=== PATIENT | female | born 1955 | race Caucasian/White ===

== ENCOUNTER 2024-04-30 06:12 | Observation (INO) ==
--- NOTE | 2024-04-11 09:24 | PAT Medication Instructions ---
Medication Instructions Date of Service April 11, 2024 Home Medications albuterol sulfate 90 mcg/actuation aerosol inhaler 1 inh inhalation QID PRN citalopram 40 mg tablet 20 mg PO QPM fluticasone 100 mcg-salmeterol 50 mcg/dose blistr powdr for inhalation (Wixela Inhub) 1 inh inhalation BID fluticasone propionate 0.05 % lotion 1 applic topical DAILY PRN meloxicam 15 mg tablet 15 mg PO UD PRN rosuvastatin 10 mg tablet 10 mg PO QPM tiotropium bromide 1.25 mcg/actuation mist for inhalation (Spiriva Respimat) 2 puff inhalation QPM triamcinolone acetonide 0.1 % topical cream 1 applic topical DAILY PRN ASK your surgeon for instructions meloxicam 15 mg tablet 15 mg PO UD PRN STOP taking 24 hours before surgery fluticasone propionate 0.05 % lotion 1 applic topical DAILY PRN triamcinolone acetonide 0.1 % topical cream 1 applic topical DAILY PRN Take morning of surgery With a small sip of water, OTHERWISE NOTHING TO EAT OR DRINK AFTER MIDNIGHT: albuterol sulfate 90 mcg/actuation aerosol inhaler 1 inh inhalation QID PRN(use if needed; please bring with you to hospital day of surgery if possible) fluticasone 100 mcg-salmeterol 50 mcg/dose blistr powdr for inhalation (Wixela Inhub) 1 inh inhalation BID Take evening before surgery albuterol sulfate 90 mcg/actuation aerosol inhaler 1 inh inhalation QID PRN(if needed) citalopram 40 mg tablet 20 mg PO QPM fluticasone 100 mcg-salmeterol 50 mcg/dose blistr powdr for inhalation (Wixela Inhub) 1 inh inhalation BID rosuvastatin 10 mg tablet 10 mg PO QPM tiotropium bromide 1.25 mcg/actuation mist for inhalation (Spiriva Respimat) 2 puff inhalation QPM Other Notes If you have any questions please call us at [phone] or [phone] or [phone] or [phone]
--- NOTE | 2024-04-18 09:30 | Anesthesiology Consultation ---
Date of Service April 18, 2024 Assessment & Plan (1) Encounter for pre-operative examination: - Infectious disease screening: Per assessment on 04/18/24: No known recent infectious disease contacts or current infectious disease symptoms. - Outpatient joint assessment: Pt currently scheduled for inpatient pathway. If surgeon requests review for outpatient joint pathway, patient is an acceptable candidate for outpatient joint program from anesthesia standpoint pending surgeon's office assessment that patient is motivated, has good support and completes Same Day Joint Program preop requirements. - RUE limb restriction - Preop CXR: Done 04/18/24- notes "Indeterminate suspected 9 mm right lung nodule. Chest CT is recommended for further evaluation." Note written to PCP regarding preop CXR (Freda GLOVER/Cristina). Patient otherwise acceptable risk for surgery. Chart Review Chart Review: Patient seen in Pre Admission Testing Teaching & Discussion Pre-Anesthesia Teaching/Discussion Notes: Instructed NPO after midnight before surgery,except medications with 15 cc of water. Medication instructions provided according to the PAT guidelines. History Surgery Operation Date: 04/30/24 10:40 Proposed Procedures p Left Total Hip Arthroplasty - Slade Hanson MD Height/Weight Height: 5 ft 9 in Weight: 122.5 kg Allergies Allergy/AdvReac Type Severity Reaction Status Date / Time No Known Allergies Allergy Verified 04/09/24 14:33 Medications Home Medications Medication Instructions Recorded Confirmed Last Taken albuterol sulfate 90 mcg/actuation 1 inh inhalation QID PRN Shortness 04/05/24 04/09/24 Unknown aerosol inhaler Of Breath citalopram 40 mg tablet 20 mg PO QPM 04/05/24 04/09/24 Unknown fluticasone 100 mcg-salmeterol 50 1 inh inhalation BID 04/05/24 04/09/24 Unknown mcg/dose blistr powdr for inhalation (Wixela Inhub) fluticasone propionate 0.05 % 1 applic topical DAILY PRN eczema 04/05/24 04/09/24 Unknown lotion meloxicam 15 mg tablet 15 mg PO UD PRN Pain 04/05/24 04/09/24 Unknown rosuvastatin 10 mg tablet 10 mg PO QPM 04/05/24 04/09/24 Unknown tiotropium bromide 1.25 2 puff inhalation QPM 04/05/24 04/09/24 Unknown mcg/actuation mist for inhalation (Spiriva Respimat) triamcinolone acetonide 0.1 % 1 applic topical DAILY PRN eczema 04/05/24 Unknown topical cream Past Medical History Medical History Bilateral hip joint arthritis COPD (chronic obstructive pulmonary disease) Depression Dyslipidemia Hx of breast cancer ~Age 59, Hx XRT x 13 weeks/surgery Hx of cardiac murmur "Very slight, since childhood" No murmur noted at PAT visit 04/18/24 Hx of cervical cancer Dx age 20s Hx surgery/oral treatment Sleep apnea BIPAP (compliant) Exercise / Class Metabolic Activity III < 4 Walking/Shop/Light housework (one FS: No CP, + SOB) Past Surgical History Surgical History History of lumpectomy of right breast + lymph node removal RUE limb restriction History of open reduction and internal fixation (ORIF) procedure Right elbow (hardware removed) History of partial hysterectomy "for partial removal of cervix" Hx laparoscopic cholecystectomy Hx of arthroscopy of left knee Hx of arthroscopy of right knee Hx of tonsillectomy Nausea after anesthesia S/P hardware removal Right elbow Past Anesthesia History No Hx of Anesthesia Complications and No Family Hx of Anesthesia Complications History of PONV History of PONV (post-op nausea) and Hx of Motion Sickness Social History Smoking Status: Current every day smoker Smoking cigarettes per day: 1 pack/few days Do You Dip or Chew Tobacco: No Hx Alcohol Use: No (No ETOH since age 24) Hx Substance Use: No substance use type: does not use Review of Systems Patient denies chest pain, shortness of breath, fever, chills, cough, wheezing. Rare palpitations. Physical Exam Vital Signs BP 145/77 P 72 TEMP 98.0 SP02 96%RA RESP 20 Physical Full cervical extension range of motion. Full TMJ range of motion. TMD 3 finger breaths Mallampati Score 1 Dentition: upper/lower full dentures Lungs: clear throughout to auscultation Cardiac: regular rate and rhythm, no murmurs noted, distant heart sounds Spine: normal Carotid arteries: negative bruit Extremities: no LE edema Lab Results Anesthesia Preop Results Results Anesthesia Widget: WBC 8.61 K/ul (4.8-10.8) 04/18/24 Hgb 15.0 g/dl (12.0-16.0) 04/18/24 Hct 45.3 % (37.0-47.0) 04/18/24 Plt 431 K/uL (130-400) H 04/18/24 Na 138 mmol/L (136-145) 04/18/24 K 3.9 mmol/L (3.5-5.1) 04/18/24 Cl 108 mmol/L (98-107) H 04/18/24 CO2 25 mmol/L (21-32) 04/18/24 BUN 15 mg/dl (6-23) 04/18/24 Creat 0.74 mg/dl (0.6-1.2) 04/18/24 Glucose Level 97 mg/dl (70-99(Fasting)) 04/18/24 PT 10.0 Seconds (9.0-12.0) 04/18/24 PTT 27 Seconds (21-31) 04/18/24 INR 0.9 (0.9-1.1) 04/18/24 Blood Type O Positive 04/18/24 Antibody Screen NEGATIVE 04/18/24 Testing Electrocardiogram Date: 04/18/24 NSR at 67bpm. Rightward axis. Chest X-Ray Date: 04/18/24 FINDINGS: Lung volumes are normal. No pneumothorax or pleural effusion is present. 9 mm round nodular density projects over the right midlung. No consolidation is present. No evidence for pulmonary edema. Cardiomediastinal silhouette is normal. IMPRESSION: No acute cardiopulmonary findings. Indeterminate suspected 9 mm right lung nodule. Chest CT is recommended for further evaluation.
--- OUTSIDE RECORDS SUMMARY | 2024-04-30 06:33 | External Medical Summary | Summary of Care ---
Author Name Unknown Organization [facility] Address [address] [place] [address] Phone [phone] Care Team Providers Care Kiln Firer Name Role Phone Freda Argueta PA-C Primary Care Provider [phone]- [phone] Reason for Referral * Evaluate & Treat - Unlimited Visits (Within 10 days (routine)) - Authorized Specialty Diagnoses / Procedures Referred By Faith weems Referred To Contact Pulmonary Diseases / Pulmonary Diagnoses Pulmonary nodules Freda Argueta PA-C [address] [place] [address] Referral ID Status Reason Start Date Expiration Date Visits Requested Visits Authorized [id number] Authorized Specialty Services Required 04/24/2024 999 999 Question Answer Referral Priority Within 10 Days (Routine) Primary Reason for Referral? Lung Nodule/Mass Reason for Visit * Reason Onset Date Comments Preop Pt Assessment 04/24/202404/24 Encounter Details Date Type Department Care Team (Late st Contact Info) Description 04/24/2024 Telephone [facility][1], [place] [address] [place] [address] [id number] Freda Argueta PA-C [address] [place] [address] [id number] Preop Pt Assessment (04/24) Allergies No known active allergiesdocumented as of this encounter (statuses as of 04/26/2024) Medications Medication Sig Dispensed Refills Start Date End Date Status triamcinolone acetonide (ARISTOCORT) 0.1 % ointmentIndications:P soriasis apply at bedtime to Psoriasis Use the clobetasol only on worst areas 80 g 5 08/01/2016 Active Additional Information Patient taking differently: apply at bedtime to Psoriasis Use the clobetasol only on worst areas, Indications: eczema, Reported on 08/28/2023 Calcium Carbonate (CALCIUM 600) 600 MG Tablet Take 1 Tab by mouth every evening. 10/04/2016 Active Additional Information Patient taking differently:600 mg Oral QPM-1999,Indications: calcium, Reported on 08/28/2023 clobetasol propionate (TEMOVATE) 0.05 % ointmentIndications:P soriasis Apply topically to affected area 2 times a day as needed for Other (psoriasis). 60 g 5 01/23/2019 Active Additional Information Patient taking differently:Topical BID PRN, Other, psoriasis,Indications: eczema, Reported on 08/28/2023 Respiratory Therapy Supplies SUSIE Use as directed. BiPAP 14/10 cm at bedtime daily Active Nebulizer DeviceIndications:Timbo trilobular emphysema (HCC) Use every 4 hours as ordered DX J 44.9 1 Each 03/01/2021 Active Nebulizer/Tubing/Mout hpiece KitIndications:Centri lobular emphysema (HCC) Use every 4 hour as directed Dx J 44.9 1 Kit 11 03/01/2021 Active Montelukast Sodium 10 MG Oral Tablet (Singulair)Indication s:Chronic rhinitis Take by mouth 1 Tablet before bedtime. 30 Tablet 11 04/29/2022 Active Additional Information Patient taking differently:10 mg Oral HS,Indications: allergies, Reported on 10/18/2023 Albuterol Sulfate HFA 108 (90 Base) MCG/ACT Inhalation Aerosol SolutionIndications:W heezing TAKE 2 puffs BY MOUTH EVERY 4 HOURS NEEDED FOR wheezing 18 g 3 10/10/2022 Active Albuterol Sulfate 1.25 MG/3ML Inhalation Nebulization SolutionIndications:C entrilobular emphysema (HCC) Inhale 1.25 mg via nebulizer every 4 hours as needed for Wheezing. 120 mL 3 02/27/2023 Active Acetaminophen 500 MG Oral Tablet (Tylenol) Take 2 Tablets by mouth every 8 hours as needed for Pain, Breakthrough. Active Rosuvastatin Calcium 10 MG Oral Tablet (Crestor)Indications: Hyperlipidemia with target LDL less than 100 Take 1 Tablet by mouth in the morning. 90 Tablet 3 09/27/2023 Active Citalopram Hydrobromide 40 MG Oral Tablet (CeleXA) TAKE 1 TABLET BY MOUTH DAILY 90 Tablet 3 11/29/2023 Active Meloxicam 15 MG Oral Tablet (Mobic)Indications:Ge neralized osteoarthritis of multiple sites TAKE 1 TABLET BY MOUTH ONCE DAILY WITH FOOD FOR pain 90 Tablet 3 12/22/2023 Active Spiriva Respimat 2.5 MCG/ACT Inhalation Aerosol Solution (Tiotropium Tyler Monohydrate)Indicatio ns:COPD, group B, by GOLD 2017 classification ([facility]) Inhale 2 Puffs by mouth in the morning. 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 60 Each 5 03/14/2024 Active documented as of this encounter (statuses as of 04/26/2024) Active Problems Problem Noted Date Diagnosed Date COPD, group B, by GOLD 2017 classification 10/17 Overview: Per COPD GOLD Classification Mucopurulent chronic bronchitis 02/10/2022 Last Assessment & Plan: Followed by pulbrigid Recurrent major depressive disorder, in full rem ission 02/10/2022 Last Assessment & Plan: Spouse 3 weeks ago. She feels she is coping well. Continues citalopram Centrilobular emphysema 07/26/2019 Overview: In Check dial performed to assess inhaler technique: 12/16/19 Name of inhalers Albuterol Pass: Yes at 60L/min, Spiriva Pass: Yes at 55L/min, Breo Ellipta Pass: Yes at 50L/min. Encouraged to take deep breath, use aero chamber, and rinse after steroid. Test performed by Roly WHITE CPFT Last Assessment & Plan: "RED FLAG" COPD symptoms: NO IDENTIFIED SYMPTOMS Medication Regimen All Classes - RUDOLPH Class D, Asthma/COPD Overlap - Inhaled LAMA Glucocorticoid-LABA Combination Inhaler Self-Management plan High frequency nebulizer treatments every 4-6 hours around the clock Exacerbation plan Prednisone 40mg daily x 5 days rescue Additional Comments: She has been stable, no exac in past year Class 3 severe obesity due t o excess calories with serious comorbidity and body mass index (BMI) of 40.0 to 44.9 in adult 05/22/2019 History of right breast cancer 05/03/2017 ARCELIA (obstructive sleep apnea) 04/14/2016 Last Assessment & Plan: Compliant with BIPAP Pulmonary nodules 03/09/2016 Pulmonary HTN 01/29/2016 Last Assessment & Plan: Followed by pulm Hyperlipidemia with target LDL less than 100 Overview: ICD-10 update of inactive term Last Assessment & Plan: Continue rosuvastatin documented as of this encounter (statuses as of 04/26/2024) Resolved Problems Problem Noted Date Diagnosed Date Resolved Date Osteoporosis without pathological fracture 01/03/2020 09/15/2023 COPD, mild 05/03/2017 01/16/2020 Overview: In Check dial performed to assess inhaler technique: 12/16/19 Name of inhalers Albuterol Pass: Yes at 60L/min, Spiriva Pass: Yes at 55L/min, Breo Ellipta Pass: Yes at 50L/min. Encouraged to take deep breath, use aero chamber, and rinse after steroid. 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 Encouraged to take deep breath, use aero chamber, and rinse after steroid. Test performed by Roly METAL TRADES INSTRUCTOR CPFT Morbid obesity 02/24/2016 05/03/2017 Psoriasis 08/18/2015 09/15/2023 Overview: Volar fingers and distal dorsal fingers clobetasol .05% oinment/occlusion at bedtime acitretin 10mg MWF (was DENIED 07/2015) Psoriasis 07/06/2015 08/18/2015 Overview: Volar fingers and distal dorsal fingers clobetasol .05% oinment/occlusion at bedtime acitretin 10mg MWF Major depressive disorder with single episode 08/15/20 14 08/15/2022 Unspecified acute reaction to stress 08/15/2014 05/03/2017 COPD (chronic obstructive pulmonary disease) 4 05/03/2017 Mixed hyperlipidemia 015 Allergic rhinitis, cause unspecified 05/03/2017 Goiter, unspecified 05/30/20 14 Chronic airway obstruction, not elsewhere classified 05/30/2014 documented as of this encounter (statuses as of 04/26/2024) Immunizations Name Administration Dates Next Due COVID-19 mRNA, LNP-s, No Pre serve, 2-Dose Series (Smart Cube) 10/27/2021,02/16/2021,01/26/2021 Covid-19, Mrna, Lnp-s, Pf, B ivalent, 30 Mcg, IM, 12 yrs and above (Smart Cube) 08/17/2022 Pneumococcal Conjugate Vacc, 13 Valent (Prevnar) 05/22/2019 Pneumococcal Polysaccharide PPV23 (Pneumovax) 06/17/2020,10/27/2011 Season Influenza, Quad, PF, Adjuvanted, 65+ Yrs, IM (FLUAD) 08/19/2020 Seasonal Influenza, PF, 6 M & above, IM , (FluLaval or Fluzone) 11/21/2018,11/01/2017 Seasonal Influenza, Quadriva lent Hd (Fluzone Hd) 09/01/2023,08/15/2022,08/11/2021 Seasonal Influenza, Quadriva lent, No Preserve, IM 07/25/2016,12/30/2015 Seasonal Influenza, Split, I IV3, With Preserve, Inj 08/15/2014,11/22/2013,11/02/2012,10/27,08/18/2010,08/05/2009 Seasonal Influenza, Trivalen t, Adjuvanted, 65+ yrs 07/26/2019 TDAP, Age 7 and older, IM (Adacel) 01/26/2012 Zoster Vaccine Recombinant (Shingrix) 06/04/2020 ,01/03/2020 documented as of this encounter Social History Tobacco Use Types Packs/Day Years Used Date Smoking Tobacco: Former Cigarettes 1.5 45 0 05/06/1970 - 05/06/2015 Smokeless Tobacco: Never Comments:exposed to alot of second hand smoke Alcohol Use Standard Drinks/Week Comments No 0 (1 standard drink = 0.6 oz pur e alcohol) PHQ-2 Answer Date Recorded PHQ Adult Total Score 0 08/11/2021 Hunger Vital Sign Answer Date Recorded Worried About Running Out of Food in the Last Ye ar Never true 06/04/2020 Ran Out of Food in the Last Year Never true 06/04/2020 Utilities Answer Date Recorded Do you have trouble paying y our heating, water, or electric bill? (Adult - for ages 18 years and over) Not on file 04/23/2024 Is your family able to pay t he heat, water, or electric bill? (Household - for ages 0-17 years) Not on file 04/23/2024 Does your family have access to good internet? (Household - for ages 0-17 years) Not on file 04/23/2024 Social Connections Answer Date Recorded How often do you feel lonely or isolated from those around you? (Adult - for ages 18 years and over) Not on file 04/23/2024 Sex and Gender Information Value Date Recorded Sex Assigned at Female 05/22/2019 12:59 PM EDT Gender Identity Female 05/22/2019 12:59 PM EDT Sexual Orientation Straight 05/22/2019 12 :59 PM EDT Job Start Date Occupation Industry Not on file Not on file Not on file documented as of this encounter Miscellaneous Notes * Telephone Encounter - Monica Guy LPN - 04/26/2024 9:31 AM EDT T/C to pt and relayed below information at this time * Telephone Encounter - Monica Guy LPN - 04/26/2024 9:24 AM EDT T/C to Kristin at [facility], relayed below information she then transferred me to Johanny in the same department, unable to reach Johanny at this time, continued to speak with Kristin, She was cleared for surgery at this time and Ok to proceed on 04/30/2024 * Telephone Encounter - Brianna Cain LPN - 04/24/2024 3:59 PM EDT Left message for the [facility] anesthesiology dept to call the office at [phone] for Freda's msg * Telephone Encounter - Freda Argueta PA-C - 04/24/2024 3:[address] can wait until after surgery. Nodule was 7 mm when last checked on CT in 2021. She can be referred back to the [facility] for management. * Telephone Encounter - Ira Ocasio LPN - 04/24/2024 8:55 AM EDT Johanny calling from [facility] Patient is having left hip arthroplasty on 04/30/2024. Pre-op chest x-ray was abnormal and they are recommending a chest CT to be done. X-ray report scanned into chart. documented in this encounter Plan of Treatment Upcoming Encounters Date Type Department Care Team (Late st Contact Info) Description 07/01/2024 7:40 AM EDT Office Visit [facility] [address] [place] [address] [address] [place] [address] Freda Argueta PA-C [address] [place] [address] Scheduled Referrals Name Type Priority Associated Diagnoses Order Schedule [facility] LUNG NODULE REFERRAL OP (SYSTEM FOR TRACKING ABNORMALITIES OF IMPORTANCE RELIABLY) Referral Within 10 days (routine) Pulmonary nodules Ordered: 04/24/2024 Health Maintenance Due Date Last Done Comments Alpha-1 Antitrypsin 02/26/1972 Colonoscopy 1999 Fecal Occult Blood Test 1999 Sigmoidoscopy 1999 DTaP,Tdap,and Td Vaccines (2 - Td or Tdap) 01/25/2022 01/26/2012 Depression Monitoring 08/11/2022 08/11/2021 Mammogram 02/17/2023 02/17/2022, 10/06, 06/24/2019, Additional history exists COVID-19 Vaccine ( season) 2023 08/17/2022, 10/27/2021, 02/16/2021, Additional history exists O2 ASSESSMENT COMPLETED IN PAST YEAR FOR COPD 12/27/2024 12/27/2023 Cologuard 03/08/2025 03/08/2022, 02/05, 03/01/2022, Additional history exists Colorectal Cancer Screening 03/08/2025 Lipid Panel 10/18/2028 10/18/2023, 04/2021, 04/23/2020, Additional history exists DXA Scan 02/17/2031 02/17/2022, 12/07, 04/01/2014 Zoster Vaccines Completed 06/04/2020, 01/03/2020 Pneumococcal Vaccine: 65+ Years Completed 06/17/2020, 05/22/2019, 10/27/2011 Lung Cancer Screening Completed 07/05/2022 , 07/01/2021, 06/17/2020, Additional history exists Influenza Vaccine (FLU shot) Completed , 08/15/2022, 08/11/2021, Additional history exists GARDASIL-HPV IMMUNIZATION SERIES Aged Out No longer eligible based on patient's age to complete this topic Hepatitis B Aged Out No longer eligi ble based on patient's age to complete this topic MENINGOCOCCAL (MENACTRA/MENVEO) Aged Out No longer eligible based on patient's age to complete this topic documented as of this encounter Medical Devices Not on filedocumented as of this encounter Visit Diagnoses Diagnosis Pulmonary nodules- Primary Other nonspecific abnormal finding of lung field documented in this encounter Advance Directives * Limited Code (Latest Code Status on File) Date Activated Date Inactivated Comments 09/20/2018 9:41 AM 09/20/2018 2:52 PM This order reflects the patients wishes and were consensually agreed upon. * Full Code Date Activated Date Inactivated Comments 02/23/2017 9:20 AM 02/23/2017 3:09 PM This order r eflects the patients wishes and were consensually agreed upon. * Full Code Date Activated Date Inactivated Comments 03/31/2015 12:03 PM 03/31/2015 6:16 PM This order reflects the patients wishes and were consensually agreed upon. Care Teams Kiln Firer Relationship Specialty Start Date End Date Freda Argueta PA-C [address] [place] [address] [place] [address] PCP - General Physician Financial Foundations Representative 12/17/18 documented as of this encounter
--- OUTSIDE RECORDS SUMMARY | 2024-04-30 06:33 | External Medical Summary | Summary of Care ---
Author Name Unknown Organization [facility] Address [address] [facility] [place] [address] Phone [phone] Care Team Providers Care Pilot Plant Operator Helper Name Role Phone Freda Argueta PA-C Primary Care Provider +1- [phone] Encounter Details Date Type Department Care Team (Late st Contact Info) Description 04/18/2024 Result Scan Unspecified Department <No scans attached> Allergies No known active allergiesdocumented as of this encounter (statuses as of 04/22/2024) Medications Medication Sig Dispensed Refills Start Date [...] Respimat 2.5 MCG/ACT Inhalation Aerosol Solution (Tiotropium [place] Monohydrate)Indicatio ns:COPD, group B, by GOLD 2017 classification ([facility]) Inhale 2 Puffs by mouth in the morning. 4 g 5 01/01/2024 Active Fluticasone-Salmetero l 100-50 MCG/ACT Inhalation Aerosol Powder Breath Activated (Wixela Inhub)Indications:DATABASES SOFTWARE CONSULTANT D, group B, by GOLD 2017 classification ([facility]) Inhale 1 Puff by mouth in the morning and 1 Puff before bedtime. 60 Each 5 03/14/2024 Active documented as of this encounter (statuses as of 04/22/2024) Active Problems Problem Noted Date Diagnosed Date COPD, group B, by GOLD 2017 classification 10/17 Overview: Per COPD GOLD Classification Mucopurulent chronic bronchitis 02/10/2022 Last Assessment & Plan: Followed by pulm Recurrent major depressive disorder, in full rem [...] rinse after steroid. Test performed by Roly GRADES 1 THRU 5 TEACHER CPFT Last Assessment & Plan: "RED FLAG" [...] as of this encounter (statuses as of 04/22/2024) Resolved Problems Problem Noted Date Diagnosed Date [...] rinse after steroid. 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 Encouraged to take deep breath, use aero chamber, and rinse after steroid. Test performed by Roly GRADES 1 THRU 5 TEACHER CPFT Morbid obesity 02/24/2016 05/03/2017 Psoriasis 08/18/2015 [...] as of this encounter (statuses as of 04/22/2024) Immunizations Name Administration Dates Next Due COVID-19 mRNA, LNP-s, No Pre serve, 2-Dose Series ([employer]) 10/27/2021,02/16/2021,01/26/2021 Covid-19, Mrna, Lnp-s, Pf, B ivalent, 30 Mcg, IM, 12 yrs and above (Pfizer) 08/17/2022 Pneumococcal Conjugate Vacc, 13 Valent (Prevnar) [...] in the Last Year Never true 06/04/2020 Sex and Gender Information Value Date Recorded Sex Assigned at Female 05/22/2019 12:59 PM EDT Gender Identity Female 05/22/2019 12:59 PM EDT Sexual Orientation Straight 05/22/2019 12 :59 PM EDT Job Start Date Occupation Industry Not on file Not on file Not on file documented as of this encounter Plan of Treatment Upcoming Encounters Date Type Department Care Team (Late st Contact Info) Description 07/01/2024 7:40 AM EDT Office Visit [address] [place] [address] Freda Argueta PA-C [address] [facility] [address] [place] [address] Health Maintenance Due Date Last Done Comments [...] Cancer Screening 03/08/2025 Lipid Panel 10/18/2028 10/18/2023, 10/0 04/2021, 04/23/2020, Additional history exists DXA Scan [...] Not on filedocumented as of this encounter Procedures Procedure Name Priority Date/Time Associated Diagnosis Comments EKG SCANNED RESULT 04/18/2024 documented in this encounter Results * EKG SCANNED RESULT (04/18/2024) 04/18/2024 No Physician Data Unknown EKG documented in this encounter Advance Directives * [...] and were consensually agreed upon. Care Teams Pilot Plant Operator Helper Relationship Specialty Start Date End Date Freda Argueta PA-C [address] [address] [place] [id number] PCP - General Physician Laborer Construction Or Leak Gang 12/17/18 documented as of this encounter
--- OUTSIDE RECORDS SUMMARY | 2024-04-30 06:33 | External Medical Summary | Summary of Care ---
Author Name Unknown Organization [facility] Address [address] [facility] [place] [address] Phone [phone] Care Team Providers Care Head Silverman Name Role Phone Freda Argueta PA-C Primary Care Provider +1- [phone] Reason for Referral * Evaluate & Treat - Unlimited Visits (Within 10 days (routine)) - Authorized Specialty Diagnoses / Procedures Referred By Faith weems Referred To Contact Pulmonary Diseases / Pulmonary Diagnoses Pulmonary nodules Freda Argueta PA-C [address] [facility] [address] [place] [address] Referral ID Status Reason Start Date Expiration Date Visits Requested Visits Authorized [id number] Authorized Specialty Services Required 04/24/[phone] Question Answer Referral Priority Within 10 Days (Routine) Primary Reason for Referral? Lung Nodule/Mass Reason for Visit * Reason Onset Date Comments Preop Pt Assessment 04/24/202404/24 Encounter Details Date Type Department Care Team (Late st Contact Info) Description 04/24/[address] [facility], [address] [address] [place] [address] [phone] Freda Argueta PA-C [address] [facility] [address] [place] [phone] Preop Pt Assessment (04/24) Allergies No known [...] Respimat 2.5 MCG/ACT Inhalation Aerosol Solution (Tiotropium [place] Monohydrate)Indicatio ns:COPD, group B, by GOLD 2017 classification ([facility]) Inhale 2 Puffs by mouth in the morning. 4 g 5 01/01/2024 Active Fluticasone-Salmetero l 100-50 MCG/ACT Inhalation Aerosol Powder Breath Activated (Wixela Inhub)Indications:RN DOCUMENTATION SPECIALIST D, group B, by GOLD 2017 classification ([facility]) Inhale 1 Puff by mouth in the [...] rinse after steroid. Test performed by Roly NAVAL SCIENCE TEACHER CPFT Mucopurulent chronic bronchitis 10/04/2016 11/02/2016 [...] rinse after steroid. Test performed by Roly NAVAL SCIENCE TEACHER CPFT Morbid obesity 02/24/2016 05/03/2017 Psoriasis [...] mRNA, LNP-s, No Pre serve, 2-Dose Series ([employer]) 10/27/2021,02/16/2021,01/26/2021 Covid-19, Mrna, Lnp-s, Pf, B ivalent, 30 Mcg, IM, 12 yrs and above ([employer]) 08/17/2022 Pneumococcal Conjugate Vacc, 13 Valent (Prevnar) [...] 9:24 AM EDT T/C to Kristin at [facility], relayed below information she then transferred me to Johanny in the same department, unable to reach Johanny at this time, continued to speak with Kristin, She was cleared for surgery at this time and Ok to proceed on 04/30/2024 * Telephone Encounter - Brianna Cain LPN - 04/24/2024 3:59 PM EDT Left message for the [facility] anesthesiology dept to call the office at [phone] for Freda's msg * Telephone Encounter - Freda Argueta PA-C - 04/24/2024 3:[address] can wait until after surgery. Nodule was 7 mm when last checked on CT in 2021. She can be referred back to the [facility] for management. * Telephone Encounter - Ira Ocasio LPN - 04/24/2024 8:55 AM EDT Johanny calling from [facility] Patient is having left hip arthroplasty on 04/30/2024. Pre-op chest x-ray was abnormal and they are recommending a chest CT to be done. X-ray report scanned into chart. documented in this encounter Plan of Treatment Upcoming Encounters Date Type Department Care Team (Late st Contact Info) Description 07/01/2024 7:40 AM EDT Office Visit [facility] [address] [place] [address] [address] [place] [address] Freda Argueta PA-C [address] [facility] [address] [place] [address] Scheduled Referrals Name Type Priority Associated Diagnoses [...] and were consensually agreed upon. Care Teams Head Silverman Relationship Specialty Start Date End Date Freda Argueta PA-C [address] [address] [place] [address] PCP - General Physician Turkey Roll Maker 12/17/18 documented as of this encounter
--- OUTSIDE RECORDS SUMMARY | 2024-04-30 06:33 | External Medical Summary | Summary of Care ---
Author Name Unknown Organization [facility] Address [address] [place] [address] Phone [phone] Care Team Providers Care Deboning Team Leader Name Role Phone Freda Argueta PA-C Primary Care Provider +1- [phone] Reason for Visit * Reason Onset Date Comments [facility] Lung Nodule 04/25/2024 Encounter Details Date Type Department Care Team (Late st Contact Info) Description 04/25/2024 Telephone [facility] LUNG NODULE [address] [place] [address] Program, Stair [address] [place] [address] [facility] Lung Nodule Allergies No known active allergiesdocumented as of this encounter (statuses as of 04/25/2024) Medications Medication Sig Dispensed Refills Start Date [...] Respimat 2.5 MCG/ACT Inhalation Aerosol Solution (Tiotropium [place] Monohydrate)Indicatio ns:COPD, group B, by GOLD 2017 classification ([facility]) Inhale 2 Puffs by mouth in the morning. 4 g 5 01/01/2024 Active Fluticasone-Salmetero l 100-50 MCG/ACT Inhalation Aerosol Powder Breath Activated (Wixela Inhub)Indications:SHOE DYER D, group B, by GOLD 2017 classification ([facility]) Inhale 1 Puff by mouth in the morning and 1 Puff before bedtime. 60 Each 5 03/14/2024 Active documented as of this encounter (statuses as of 04/25/2024) Active Problems Problem Noted Date Diagnosed Date [...] rinse after steroid. Test performed by Roly EMERGENCY DOCTOR CPFT Last Assessment & Plan: "RED FLAG" [...] as of this encounter (statuses as of 04/25/2024) Resolved Problems Problem Noted Date Diagnosed Date [...] rinse after steroid. Test performed by Roly EMERGENCY DOCTOR CPFT Mucopurulent chronic bronchitis 10/04/2016 11/02/2016 Morbid [...] rinse after steroid. Test performed by Roly EMERGENCY DOCTOR CPFT Morbid obesity 02/24/2016 05/03/2017 Psoriasis 08/18/2015 [...] as of this encounter (statuses as of 04/25/2024) Immunizations Name Administration Dates Next Due COVID-19 mRNA, LNP-s, No Pre serve, 2-Dose Series ([employer]M) 10/27/2021,02/16/2021,01/26/2021 Covid-19, Mrna, Lnp-s, Pf, B ivalent, 30 Mcg, IM, 12 yrs and above (XTRM) 08/17/2022 Pneumococcal Conjugate Vacc, 13 Valent (Prevnar) [...] encounter Miscellaneous Notes * Telephone Encounter - Joyce Alonzo LPN - 04/25/2024 11:20 AM EDT Referral rec'd to the [facility] Lung Nodule Program, however the patient is already enrolled in the [facility] and just needs to have annual LDCT. Attempted to contact patient, phone number invalid. Sending Letter documented in this encounter Plan of Treatment Upcoming Encounters Date Type Department Care Team (Late st Contact Info) Description 07/01/2024 7:40 AM EDT Office Visit [address] [place] [address] Freda Argueta PA-C [address] [facility] [address] [place] [address] Health Maintenance Due Date Last Done Comments Alpha-1 Antitrypsin 02/26/1972 Colonoscopy 1999 Fecal Occult Blood Test 1999 Sigmoidoscopy 1999 DTaP,Tdap,and Td Vaccines (2 - Td or Tdap) 01/25/2022 01/26/2012 Depression Monitoring 08/11/2022 08/11/2021 Mammogram 02/17/2023 02/17/2022, 10/06, 06/24/2019, Additional history exists COVID-19 Vaccine (2022- season) 2023 08/17/2022, 10/27/2021, 02/16/2021, Additional history [...] Not on filedocumented as of this encounter Advance Directives * Limited Code [...] and were consensually agreed upon. Care Teams Deboning Team Leader Relationship Specialty Start Date End Date Freda Argueta PA-C [address] [place] [address] PCP - General Physician Marine Engineering Technicians 12/17/18 documented as of this encounter
--- OUTSIDE RECORDS SUMMARY | 2024-04-30 06:33 | External Medical Summary | Summary of Care ---
Author Name Unknown Organization [facility] Address [address] [facility] [address] Phone [phone] Care Team Providers Care Simulation Software Engineer Name Role Phone Freda Argueta PA-C Primary Care Provider +1- [phone] Encounter Details Date Type Department Care Team (Late st Contact Info) Description 04/22/2024 Orders Only [address] [address] [address] [place], [place] [phone] Freda Argueta PA-C [facility] [facility] [address] [place], [place] [phone] Allergies No known active allergiesdocumented as of [...] Additional Information Patient taking differently:600 mg Oral QPM-2000,Indications: calcium, Reported on 08/28/2023 clobetasol propionate (TEMOVATE) [...] Respimat 2.5 MCG/ACT Inhalation Aerosol Solution (Tiotropium [place] Monohydrate)Indicatio ns:COPD, group B, by GOLD 2017 classification ([facility]) Inhale 2 Puffs by mouth in the morning. 4 g 5 01/01/2024 Active Fluticasone-Salmetero l 100-50 MCG/ACT Inhalation Aerosol Powder Breath Activated (Wixela Inhub)Indications:HOTEL BAGGAGE HANDLER D, group B, by GOLD 2017 classification [...] 02/10/2022 Last Assessment & Plan: Followed by joycelyn Recurrent major depressive disorder, in full rem [...] rinse after steroid. Test performed by Roly ECONOMIC HISTORY TEACHER CPFT Last Assessment & Plan: "RED [...] rinse after steroid. Test performed by Roly ECONOMIC HISTORY TEACHER CPFT Mucopurulent chronic bronchitis 10/04/2016 11/02/2016 [...] rinse after steroid. Test performed by Roly ECONOMIC HISTORY TEACHER CPFT Morbid obesity 02/24/2016 05/03/2017 Psoriasis [...] mRNA, LNP-s, No Pre serve, 2-Dose Series ([employer]) 10/27/2021,02/16/2021,01/26/2021 Covid-19, Mrna, Lnp-s, Pf, B ivalent, 30 Mcg, IM, 12 yrs and above ([employer]) 08/17/2022 Pneumococcal Conjugate Vacc, 13 Valent (Prevnar) [...] Description 07/01/2024 7:40 AM EDT Office Visit [address] [place] [address] Freda Argueta PA-C [facility] [address] [place] [address] Health Maintenance Due Date Last Done Comments [...] Cancer Screening 03/08/2025 Lipid Panel 10/18/2028 10/18/2023, 10/04/2021, 04/23/2020, Additional history exists DXA Scan 02/17/2031 [...] Procedure Name Priority Date/Time Associated Diagnosis Comments XR CHEST 2 VIEWS Routine 04/18/2024 CHEMISTRY-OUTSIDE Routine 04/18/2024 documented in this encounter Results * CHEMISTRY-OUTSIDE (04/18/2024) Not all results display below - see scan for full detail SCAN INCLUDES: PT INR, INR, BMP, CBCD OUTSIDE LAB (SEE SCANNED REPORT) CREATININE-OUTSID E LAB 0.74 0.6 - 1.2 MG/DL OUTSIDE LAB (SEE SCANNED REPORT) EGFR-OUTSIDE LAB 82.1 ML/MIN OUT SIDE LAB (SEE SCANNED REPORT) POTASSIUM-OUTSIDE LAB 3.9 3.5 - 5.1 MMOL/L OUTSIDE LAB (SEE SCANNED REPORT) GLUCOSE-OUTSIDE LAB 97 70 - 99 MG/DL OUTSIDE LAB (SEE SCANNED REPORT) HOURS FASTING OUTSID E LAB (SEE SCANNED REPORT) TRIGLYCERIDES-OUT SIDE LAB OUTSIDE LAB (SEE SCANNED REPORT) CHOLESTEROL-OUTSI DE LAB OUTSIDE LAB (SEE SCANNED REPORT) HDL-OUTSIDE LAB OUTS [place] LAB (SEE SCANNED REPORT) CHOL/HDL RATIO-OUTSIDE LAB OUTSIDE [place] B (SEE SCANNED REPORT) LDL (CALCULATED)-OUTS [place] LAB OUTSIDE LAB (SEE SCANNED REPORT) LDL (DIRECT MEASURE)-OUTSIDE LAB OUTSIDE LAB (SEE SCANNED REPORT) HEMOGLOBIN, L4L-[id number] LAB OUTSIDE LAB (SEE SCANNED REPORT) PHOSPHORUS-OUTSID E LAB OUTSIDE LAB (SEE SCANNED REPORT) PTH-OUTSIDE LAB OUTS [place] LAB (SEE SCANNED REPORT) MICROALBUMIN RATIO-OUTSIDE LAB OUTSIDE LA B (SEE SCANNED REPORT) PROTEIN, UA-OUTSIDE LAB OUTSIDE LAB (SEE SCANNED REPORT) HGB 15.0 12.0 - 16.0 G/DL OUTSIDE LAB (SEE SCANNED REPORT) 04/18/2024 Slade Hanson MD LABORATORY OUTSIDE LAB (SEE SCANNED REPORT) * XR CHEST 2 VIEWS (04/18/2024) Anatomical Region Laterality Modality Chest Other 04/18/2024 Slade Hanson MD RADIOLOGY ([facility]) documented in this encounter Advance Directives * [...] and were consensually agreed upon. Care Teams Simulation Software Engineer Relationship Specialty Start Date End Date Freda Argueta PA-C [address] [facility] [address] [place] [address] PCP - General Physician Contract Loader 12/17/18 documented as of this encounter
[2024-04-30] MEDS ORDERED: BUPIVACAINE 0.5 % 5 MG/1 ML PF 10ML VIAL ONE (06:34)
--- NOTE | 2024-04-30 06:48 | History & Physical Bridge Note ---
Date of Service April 30, 2024 History & Physical Bridge Note I have examined the patient, reviewed the History & Physical and in the interval since the performance of the History & Physical I have noted the following changes of clinical significance: no changes noted
[2024-04-30] MEDS: LR 500ML BOLUS, THEN 15ML/HR IV SCH (07:00)
[2024-04-30] MEDS: CeleBREX 200 MG CAP PO SCH (07:10)
[2024-04-30] MEDS: ACETAMINOPHEN 500 MG TAB PO SCH ×2 (07:10→14:35)
[2024-04-30] MEDS: FAMOTIDINE 20 MG TAB PO SCH (07:10)
[2024-04-30] MEDS: LR 60ML/HR IV SCH (07:10)
[2024-04-30] MEDS: dexAMETHasone**PF** 10 MG/ML VIAL IV SCH (07:11)
[2024-04-30] MEDS: Scopolamine 1 MG TDSY TD SCH (07:11)
[2024-04-30] MEDS: METOCLOPRAMIDE HCL 10 MG TABLET PO SCH (07:11)
[2024-04-30] MEDS ORDERED: PROPOFOL IV EMULSION 10 MG/ML 100 ML VIAL IV ONE (07:15)
[2024-04-30] MEDS ORDERED: fentaNYL citrate PF 100 MCG/2 ML VIAL ONE (07:16)
[2024-04-30] MEDS ORDERED: MIDAZOLAM HCL 1 MG/ML 2ML VIAL ONE (07:16)
[2024-04-30] MEDS ORDERED: ONDANSETRON INJ 2 MG/ML 2 ML VIAL IV PRN ×2 (07:54→12:10)
[2024-04-30] MEDS ORDERED: fentaNYL citrate PF 100 MCG/2 ML VIAL IV PRN (07:54)
[2024-04-30] MEDS ORDERED: ePHEDrine sulfate 50 MG/ML AMP IV PRN (07:54)
[2024-04-30] MEDS ORDERED: ATROPINE SULFATE 0.1 MG/ML 10ML SYR IV PRN (07:54)
[2024-04-30] MEDS: TRANEXAMIC ACID 1,000 MG **IV Pre-op IV SCH (08:16)
[2024-04-30] MEDS: ceFAZolin 3000MG 3,000 MG/72.5 ML BAG IV SCH (08:24)
[2024-04-30] MEDS: BUPIVACAINE/EPINEPHRINE 0.5% MPF 1:200,000 30 ML VIAL ONE (09:25)
[2024-04-30] MEDS ORDERED: LIDOCAINE 2% 2 ML VIAL/AMP(20MG/ML) INFIL ONE (09:38)
[2024-04-30] MEDS ORDERED: ONDANSETRON INJ 2 MG/ML 2 ML VIAL ONE (09:38)
[2024-04-30] MEDS ORDERED: PHENYLEPHRINE 100MCG/ML 10ML SYR IV ONE (09:38)
[2024-04-30] MEDS ORDERED: PROPOFOL IV EMULSION 10 MG/ML 20 ML VIAL IV ONE (09:38)
--- NOTE | 2024-04-30 10:44 | Operative Report ---
PG Post Operative Report Pre & Post Diagnosis Operation Date: 04/30/24 08:50 Pre-Op Diagnosis: Left Hip Degenerative Joint Disease Post-Op Diagnosis: Left Hip Degenerative Joint Disease I identified the patient and participated in the time-out.: Yes Procedure Operation Date: 04/30/24 08:50 Actual Procedures p Left Total Hip Arthroplasty(Left) - Slade Hanson MD Surgeon Slade Hanson MD Family Literacy Coordinator Wyatt Meza PA-C Estimated Blood Loss 200 Findings Consistent with Post-Op Diagnosis Operative findings: Advanced left hip DJD. She had grade 4 [id number] disease of the femoral head and acetabulum. She had a very large anterior acetabular osteophyte with a very stiff hip preoperatively. Moderate-sized joint effusion. Specimens Left femoral head sent for pathology. Anesthesia Type Spinal MAC Complications none Disposition Accompanied Patient To Recovery: No Indications Patient is a 69-year-old female has had a long history of progressive left hip pain discomfort to the point where she has had to use a walker to get around for the past 2 years. X-rays show advanced hip arthritis. She failed conservative measures. She like to proceed with total hip arthroplasty. The patient does have a history of a smoking history as well as a failure fracture fixation in other areas and we elected using a cemented implant in order to maximize her stability and decrease her risk for fracture and optimize her outcome. Description of Procedure Operative implants consist of: 1. Biomet G7 size 54 mm acetabular shell. 2. 6.5 cancellous acetabular screws 1 of 35 mm in length and 1 to 20 mm length. 3. [place] hole sales special agent. 4. Highly cross-linked polyethylene liner with a 54 mm outer diameter, 36 mm inner diameter clip placed inferior and posterior. 5. DePuy [place] size 3 high offset cemented femoral stem. 6. +8.5/36 mm ceramic articular ball. The patient was taken the op room, identified, placed on the operating table in the supine position. All contact areas were appropriately padded. IV antibiotics provided by anesthesia team. A spinal anesthetic had been implemented holding area. Santillan catheter was placed in sterile fashion. The patient was then placed in the right lateral decubitus position. An axillary roll was placed. Distal Birkett position was used for positioning. Left hip and leg were then prepped and draped in sterile fashion. A posterolateral approach to the left hip Incision centered over the greater trochanter. Sharp dissection carried through subcutaneous tissue down to the IT band gluteal fascia. The IT band gluteal fascia incised longitudinally in line with skin incision. The underlying greater bursa was excised. The piriformis and external rotators were then tagged taken off the posterior aspect with hip along with the posterior hip joint capsule as a single layer. Great care throughout the procedure protect the sciatic nerve at all times. She did have a significant external rotation contracture. Hip was internally rotated and dislocated. Femoral neck osteotomy cut was made with Final Cut 12 mm above the lesser trochanter. Femoral head was removed and sent for pathology. The femur was retracted anteriorly. Attention drawn the acetabulum. The acetabular labrum was excised. The pulmonary fat was excised. Sequential reaming the acetabular was then performed again with size 43 and progressing up to 53. I did ream a little bit with a 54 reamer. We did medialize her cup and the osteophyte medially was bigger than what looks like on x-ray. A 54 mm Biomet acetabular shell was then placed in about 40 degrees lateral opening and 20 degrees of anteversion. It was fixed with two 6.5 cancellous acetabular screws. A large anterior osteophyte was removed. Trial liner was placed. Attention drawn the femur. The proximal femur was entered with a Ynn[employer]able [employer] cutter followed by canal finder and lateralizing reamer. Then broached beginning size 1 progressive distally. We started to broach with a 4 by could get the whole way down to the 1 wrist fracture. We elect to place a 3 implant. I first trialed this with a standard implant with soft tissue tension was extremely lax. We therefore used elected use a high offset stem with a plus/8.5 head. The hip was fully stable full extension and external rotation flexion to 90 degrees internal rotation about 50 degrees. I did elect to place a maloney inferior and posterior to maximize her stability in flexion. We elect to place these implants. All trial implants were removed. A cement restrictor was placed distally. A highly cross-linked polyethylene liner was placed. Double batch [place] G cement was mixed and injected in the canal. A size 3 high offset femoral stem was placed. Once the cement hardened +8.5/36 mm ceramic articular ball was placed. Hip was located once again found to be stable. Attention drawn toward closing. Wound was irrigated coconuts pulsatile lavage solution. I did inject locally with 60 cc of half percent Marcaine with epinephrine. Posterior capsule and external rotators In the posterior trochanter with #2 Tycron suture. The IT band gluteal fascia then closed with #1 PDS suture running fashion. Subcutaneous tissues were closed with 2 layers of the deep layer of the deep layer #2-0 Vicryl suture and subcutaneous tissue with 2-0 Dexon suture in buried interrupted fashion and skin was closed with skin jimmy. Leg was then cleaned and dried. A Prevena VAC dressing was applied due to the thick soft tissue envelope. Patient was then transferred to the recovery in stable condition. Patient tolerated procedure well and there are no complications. Wyatt Meza, my physician assistant bookkeeper, was present for the entire procedure. His assistance was essential and required for appropriate patient positioning, prepping and draping, surgical exposure, performing the technical details of the operation, placement the implants, closure of the wound, and placement of the sterile bandage. I attest to the content of the Intraoperative Record and any orders documented therein. Any exceptions are noted below.
--- NOTE | 2024-04-30 11:36 | XRay Report ---
XR hip 1V LT w pelvis CLINICAL HISTORY: Postoperative evaluation. COMPARISON: Left hip radiographs April 05, 2024. FINDINGS: Alignment of the total left hip arthroplasty is anatomic. There is no periprosthetic fract ure or unexpected radiopaque foreign body. There are skin jimmy and acetabular screws. IMPRESSION: Expected findings following total left hip arthroplasty. ACT 112: Negative or not required by law. Electronically signed by: Bassam Samuels M.D. 04/30/2024 11:34 AM
[2024-04-30] MEDS ORDERED: HYDROmorphone INJ 0.5 MG/0.5 ML SYR IV PRN (12:10)
[2024-04-30] MEDS ORDERED: MAGNESIUM HYDROXIDE SUSP 30 ML UDC PO PRN (12:10)
[2024-04-30] MEDS ORDERED: ALBUTEROL HFA 8 GM INHALER INH PRN (12:10)
[2024-04-30] MEDS ORDERED: NALOXONE HCL 0.4 MG/1 ML VIAL/CARP IV PRN (12:10)
[2024-04-30] MEDS ORDERED: TRIAMCINOLONE ACET 0.1% CR 15 GM TUBE TOP PRN (12:10)
[2024-04-30] MEDS ORDERED: ALUMINUM/MAGNESIUM SUSP 30 ML UDC PO PRN (12:10)
[2024-04-30] MEDS ORDERED: METOCLOPRAMIDE HCL INJ 5 MG/ML 2 ML VIAL IV PRN (12:10)
[2024-04-30] MEDS ORDERED: bisacodyL 10 MG SUPP PR PRN (12:10)
[2024-04-30] MEDS ORDERED: BETAMETHASONE VAL 0.1% CR 15 GM TOP PRN (12:24)
[2024-04-30] MEDS: SODIUM CHLORIDE 0.9% 1,000 ML IV SCH (13:09)
--- NOTE | 2024-04-30 13:30 | Anesthesiology Progress Note ---
Date of Service April 30, 2024 Anesthesia Post Procedure Vital Signs Vital Signs: Temp Pulse Pulse Resp BP Pulse Ox O2 Del Method 04/30/24 12:34 36.5 C 68 16 130/71 94 Oxymask 04/30/24 12:05 36.4 C L 64 16 126/76 93 Oxymask 04/30/24 11:35 36.5 C 65 18 121/75 94 Oxymask 04/30/24 11:35 Oxymask 04/30/24 11:15 36.9 C 68 19 127/79 93 Room Air 04/30/24 11:05 36.9 C 67 19 127/76 93 Room Air 04/30/24 10:55 68 20 124/72 92 Oxymask 04/30/24 10:45 67 20 131/74 94 Oxymask 04/30/24 10:35 71 21 131/71 96 Oxymask 04/30/24 10:29 36.7 C 69 16 115/66 96 Oxymask 04/30/24 06:30 36.6 C 73 20 108/68 97 Room Air O2 Flow Rate 04/30/24 12:34 2 04/30/24 12:05 2 04/30/24 11:35 2 04/30/24 11:35 2 04/30/24 11:15 04/30/24 11:05 04/30/24 10:55 2 04/30/24 10:45 3 04/30/24 10:35 5 04/30/24 10:29 5 04/30/24 06:30 Pain Intensity Left Hip: Pain Intensity: 2 Transfer of Care Handoff Completed per policy Notes Mental Status: alert / awake / arousable and participated in evaluation Patient Amnestic to Procedure: Yes Nausea / Vomiting: adequately controlled Pain: adequately controlled Airway Patency, RR, SpO2: stable & adequate BP & HR: stable & adequate Hydration State: stable & adequate Neuraxial Anesthesia: was administered and sensory block is resolving Anesthetic Complications: no major complications apparent and Pt Satisfied with anesthetic care
[2024-04-30] MEDS ORDERED: ACETAMINOPHEN 500 MG TAB PO SCH (14:00)
[2024-04-30] MEDS: TRANEXAMIC ACID / 0.7% NACL 1,000 MG/100 ML BAG IV SCH (16:52)
[2024-04-30] MEDS: Scopolamine CHECK PATCH PLACEMENT SCH (16:52)
[2024-04-30] MEDS: ASCORBIC ACID 500 MG TAB PO SCH (16:55)
[2024-04-30] MEDS: ceFAZolin 2000MG 2,000 MG/15 ML SYR IV SCH (17:13)
[2024-04-30] MEDS: KETOROLAC TROMETHAMINE 15 MG/ML VIAL IV SCH (18:34)
[2024-04-30] MEDS: DOCUSATE SODIUM 100 MG CAP PO SCH (20:44)
[2024-04-30] MEDS: ROSUVASTATIN CALCIUM 10 MG TAB PO SCH (20:44)
[2024-04-30] MEDS: SENNA 8.6 MG TAB PO SCH (20:44)
[2024-04-30] MEDS: ASPIRIN 81 MG ECTAB PO SCH (20:45)
[2024-04-30] MEDS: CITALOPRAM 20 MG TAB PO SCH (20:45)
[2024-04-30] MEDS ORDERED: SENNA 8.6 MG TAB PO SCH (21:00)
[2024-05-01 07:09] LABS: BUN Creatinine Ratio 14.5 (10-20); Calcium 8.5 mg/dl (8.6-10.3); Est GFR (African American) 102.2 ml/min; Est GFR (Non-African American) 88.2 ml/min; Potassium 4.2 mmol/L (3.5-5.1)
[2024-05-01 07:17] LABS: Basophils # (auto) 0.02 K/uL (0.00-0.20); Basophils % (auto) 0.2 %; Eosinophils # (auto) 0.03 K/uL (0.00-0.50); Eosinophils % (auto) 0.2 %; Hematocrit (blood only) 40.6 % (37.0-47.0); Hemoglobin 13.3 g/dl (12.0-16.0); Immature Granulocytes # (auto) 0.05 K/uL (0.01-0.20); Immature Granulocytes % (auto) 0.4 %; Lymphocytes # (auto) 1.96 K/uL (1.20-3.40); Lymphocytes % (auto) 16.1 %; Mean Corpuscular Hemoglobin 30.1 pg (25.0-34.0); Mean Corpuscular Hgb Conc 32.8 g/dL (32.0-36.0); Mean Corpuscular Volume 91.9 fL (80.0-100.0); Monocytes # (auto) 1.14 K/uL (0.11-0.59); Monocytes % (auto) 9.4 %; Neutrophils # (auto) 8.95 K/uL (1.40-6.50); Neutrophils % (auto) 73.7 %; Platelet Count 355 K/uL (130-400); RDW Coefficient of Variation 13.4 % (11.5-14.5); RDW Standard Deviation 45.9 fL (36.4-46.3); Red Blood Count 4.42 M/uL (4.20-5.40); White Blood Count 12.15 K/ul (4.8-10.8)
[2024-05-01] MEDS: dexAMETHasone 10 MG in SYRINGE 0 ML IV SCH (08:29)
[2024-05-01] MEDS: traMADol HCL 50 MG TABLET PO PRN (08:29)
[2024-05-01] MEDS: MULTIVITAMIN TAB PO SCH (08:30)
[2024-05-01] MEDS: UMECLIDINIUM BROMIDE 62.5MCG/BLISTER 7 PUFFS/INHALER INH SCH (08:34)
[2024-05-01] MEDS: FLUTICASONE/VILANTEROL 100/25MCG 14 PUFFS/INHALER INH SCH (08:34)
--- NOTE | 2024-05-01 11:18 | Orthopedic Progress Note ---
Date of Service May 01, 2024 Assessment & Plan (1) Status post left hip replacement: Plan: 69-year-old female postop day 1 from a left hybrid total hip replacement doing well. Pains controlled. Hips located. She is neurologically intact. She is hoping to go home. Plan: 1. DVT prophylaxis including thigh-high teds, SCDs, aspirin twice a day. 2. PT/OT. Weight-bear as tolerated. Left total hip protocol. 3. Pain control doing well with current pain regimen. 4. Disposition plan to discharge to home with some home health as long as therapy goes okay today. Admission and Anticipated Discharge Date Admission Date: April 30, 2024 Subjective 69-year-old female postop day 1 from a left total hip replacement. She is doing quite well. Having some soreness but very manageable. She been up and getting around. She is open to go home. No chest pain or shortness of breath. Not feeling dizzy or lightheaded. Physical Exam Physical Exam: Physical examination was a pleasant middle-aged female. She was a walk around the room with a walker this morning. Examination of the hip reveals a Prevena VAC dressing in place. Thigh is soft and supple. She is neurologically intact. She can dorsiflex and plantarflex her foot appropriately Respiratory: normal respiratory effort, lungs clear to auscultation Cardiovascular: RRR, no murmur, no edema Gastrointestinal (Abdomen): normal bowel sounds, soft, nontender, no hepatosplenomegaly Results & Data Vital Signs (Past 12 Hours) Vital Signs Temp Pulse Pulse Resp BP Pulse Ox O2 Del Method 05/01/24 09:40 36.6 C 68 54 L 16 118/77 94 05/01/24 09:34 Room Air 05/01/24 06:55 36.6 C 54 L 16 118/77 94 Room Air 05/01/24 03:39 36.8 C 53 L 16 123/72 94 Room Air Laboratory Results Hemoglobin is 13.3. Hematocrit is 40.6. Electrolytes are stable.
== END 2024-05-01 11:24 | disposition home health service (06) ==
LOC: ASU 06:12 → 3E 06:12